=== PATIENT | male | born 1975 | race Caucasian/White ===

== ENCOUNTER 2019-09-25 17:26 | Emergency (ER) | payer BC ==
--- NOTE | 2019-09-25 17:39 | EDM.PDOC ---
ED HPI GENERAL MEDICAL PROBLEM - General Chief Complaint: Laceration Stated Complaint: LEFT RING FINGER INJURY Time Seen by Provider: 09/25/19 17:38 Source of Information: Reports: Patient History Limitations: Reports: No Limitations - History of Present Illness INITIAL COMMENTS - FREE TEXT/NARRATIVE: 44-year-old male presents to the ED after a crush type injury to his left fourth finger. Patient is a self-employed [employer]. He reports he had another pushing on the auger and his finger got crushed between the auger and a forklift. He has numbness to the tip volarly of the fourth left finger. Movement He did have a glove on the time of injury. He cannot remember his last tetanus toxoid. Patient has it wrapped up with electrical tape over top of a bandage on the wound to stop the bleeding . Patient did appreciate two active bleeding wounds on his volar finger when he examined it, prior to bandaging it. Patient was not wearing a wedding ring. Onset: Today Onset Date: 09/25/19 Onset Time: 16:30 Duration: Minutes: Location: Reports: Upper Extremity, Left (Due to the proximal left fourth finger.) Quality: Reports: Ache, Other (Mildly numb on the volar tip of the left fourth finger.) Severity: Mild Improves with: Reports: Rest Worsens with: Reports: Movement Context: Reports: Trauma (Type injury between 2 steel objects.). Denies: Activity, Exercise, Lifting, Sick Contact Associated Symptoms: Reports: No Other Symptoms Treatments BREAKFAST COOK: Reports: Other (see below) Left Finger-Ring Pain Score (Numeric/FACES): 2 - Related Data Allergies Allergy/AdvReac Type Severity Reaction Status Date / Time No Known Allergies Allergy Verified 09/25/19 17:37 Home Meds: Home Meds Doxycycline [Vibra-Tabs] 100 mg PO Q12HR #20 tab 09/25/19 [Rx] Social & Family History - Living Situation & Occupation Living situation: Reports: Occupation: Employed (Self-employed) ED ROS GENERAL - Review of Systems Review Of Systems: See Below Constitutional: Reports: No Symptoms HEENT: Reports: No Symptoms Respiratory: Reports: No Symptoms Cardiovascular: Reports: No Symptoms Endocrine: Reports: No Symptoms GI/Abdominal: Reports: No Symptoms : Reports: No Symptoms Musculoskeletal: Reports: No Symptoms Skin: Reports: No Symptoms Neurological: Reports: No Symptoms Psychiatric: Reports: No Symptoms Hematologic/Lymphatic: Reports: No Symptoms Immunologic: Reports: No Symptoms ED EXAM, SKIN/RASH Exam: See Below Exam Limited By: No Limitations General Appearance: Alert, WD/WN, No Apparent Distress Extremities: Other (Valuation of his hand on the left side reveals marked diffuse swelling with ecchymoses lateral to the ulnar and radial PIP joint. There is major swelling in the volar aspect of the finger and he is able to flex to 90 degrees. This is limited by swelling in the proximal phalanx.) Skin: Other (Wounds x2 aspect of left proximal finger. Both wounds will require laceration repair. Ulnar wound is 0.4 years and will require 1 suture. The wound on the radial aspect is stellate and will likely require 3 sutures. Overall length is still 1.2 cm.) Lymphatic: No Adenopathy ED SKIN PROCEDURES - Laceration/Wound Repair Lateral Proximal Ventral Digit - 4th (Ring) Appearance: Subcutaneous (Wounds. Ulnar aspect proximal volar left fourth finger 0.6 mm. Second wound is stellate and 1.8 centimeters in total length. 3 sutures placed in the ulnar wound and 6 sutures in the radial wound), Clean Distal NVT: Neuro & Vascular Intact Anesthetic Type: Local Local Anesthesia - Lidocaine (Xylocaine): 1% Plain Local Anesthetic Volume: 3cc Skin Prep: Saline Saline Irrigation (cc's): 9 Exploration/Debridement/Repair: Wound Explored, Minimal Debridement Closed with: Sutures Lac/Wound length In cm: 2.4 Suture Size: 4-0 Course - Vital Signs Last Recorded V/S: Last Vital Signs Temp 37.1 C 09/25/19 17:35 Pulse 86 09/25/19 17:35 Resp 18 09/25/19 17:35 BP 149/97 H 09/25/19 17:35 Pulse Ox 95 09/25/19 17:35 - Orders/Labs/Meds Orders: Active Orders 24 hr Category Date Time Status Vaccines to be Administered [RC] PER UNIT ROUTINE Care 09/25/19 17:48 Active Fingers Fourth Digit Lt F3 [CR] Stat Exams 09/25/19 17:47 Taken Meds: Medications Discontinued Medications Generic Name Dose Route Start Last Admin Trade Name Freq PRN Reason Stop Dose Admin Diphtheria/Tetanus/Acell Pertussis 0.5 ml 09/25/19 17:48 09/25/19 18:49 Adacel IM 09/25/19 17:49 0.5 ml .ONCE ONE Administration Lidocaine HCl 10 ml 09/25/19 18:00 09/25/19 18:50 Xylocaine 1% INJECT 09/25/19 18:01 10 ml ONETIME ONE Administration - Radiology Interpretation Free Text/Narrative:: 44-year-old male presents to the ED with a crush type injury to the volar aspect of his left proximal finger. 2 lacerations to the volar aspect of the finger one is only one is radial. Radial wound is approximately 1.2 cm in length in total. It is a stellate laceration. Laceration on the ulnar aspect of the volar finger is 4 mm in length and will require only 1 suture. Concern for possible fracture evident on exam as there is marked ecchymoses along the PIP joint line on both sides of the finger and at the MCP joint. He has fairly near normal range of motion limited by swelling over the volar proximal phalanx. PlaN: an x-ray will be done. Tdap will be updated since he cannot remember his last one. - Re-Assessments/Exams Free Text/Narrative Re-Assessment/Exam: 09/25/19 18:16 extremity of the left fourth finger reveals a subtle fracture of the proximal phalanx volar aspect. It is a occult fracture with mild displacement 1 to 2 mm at the MCP joint. 09/25/19 18:59 wounds on the volar surface of the proximal phalanx left fourth finger sutured under local anesthetic. Ulnar wound 0.6 cm in size sutured x3. Stellate 1.8 cm laceration radial volar proximal phalanx sutured times 6 sutures. Sutures will need to be removed in 10 days time. Due to the fracture of the proximal phalanx he will wear an aluminum splint starting tomorrow after finger cot dressing is removed. He is to wear this for the next 3-1/2 weeks. To start gradual range of motion exercises and protect as needed with a splint. Advised able take a full 6 weeks for the fracture to heal up completely. Offered analgesia but he declined. Will place him on antibiotics doxycycline 100 mg twice daily for the next 10 days to prevent secondary wound infection. Departure - Departure Time of Disposition: 19:01 Disposition: Home, Self-Care 01 Condition: Fair Clinical Impression: Fracture of proximal phalanx of finger of left hand Laceration of finger Qualifiers: Encounter type: initial encounter Finger: ring finger Damage to nail status: without damage Foreign body presence: without foreign body Laterality: left Qualified Code(s): S61.215A - Laceration without foreign body of left ring finger without damage to nail, initial encounter - Discharge Information *PRESCRIPTION DRUG MONITORING PROGRAM REVIEWED*: Not Applicable *COPY OF PRESCRIPTION DRUG MONITORING REPORT IN PATIENT YOSSI: Not Applicable Prescriptions: Doxycycline [Vibra-Tabs] 100 mg PO Q12HR #20 tab Instructions: Finger Fracture, Adult, [id number], Cast or Splint Care, Adult, [id number], Wound Care, Adult, Laceration Care, Adult, [id number] Referrals: Wilberto Butterfield MD [Primary Care Provider] - Forms: ED Department Discharge Additional Instructions: Evaluation in the emergency room today in regards to a crush type injury to the volar proximal aspect of your left ring finger. This resulted from being crushed between 2 pieces of steel under force. Nation reveals to lacerations to the proximal volar aspect of the finger. Ulnar wound is approximately 0.6 mm in length and was sutured x3. Radial wound 1.8 cm in length and sutured x6 under local anesthetic. A of the finger reveals a vertical fracture through the base of the proximal phalanx with minimal displacement. Treatment at home is Motrin as needed for pain relief. Suggest antibiotic doxycycline 100 mg twice daily for the next 10 days to prevent secondary wound infection and prevention of bone infection. Initial immobilization with finger cot dressing in the ED. This may be removed tomorrow night. Then daily cleanse the wound with soap and water. Showering is okay. Then apply topical antibiotic such as bacitracin or Polysporin to the wound once daily and cover with a bandage to keep clean. Suggest wearing a glove as needed to protect the area. You will need to wear a aluminum splint for the next 3-1/2 weeks to allow the fracture to partially heal. After this start to regain normal range of motion. It will take a full 6 weeks for the fracture to heal solidly. Into medical care if any signs of infection develop such as increased redness, swelling, obvious pus. Sepsis Event Note (ED) - Evaluation Sepsis Screening Result: No Definite Risk - Focused Exam Vital Signs: Vital Signs Temp Pulse Resp BP Pulse Ox 06/29/20 17:35 37.1 C 86 18 149/97 H 95 - My Orders Last 24 Hours: My Active Orders 09/25/19 17:47 Fingers Fourth Digit Lt F3 [CR] Stat 09/25/19 17:48 Vaccines to be Administered [RC] PER UNIT ROUTINE - Assessment/Plan Last 24 Hours: My Active Orders 09/25/19 17:47 Fingers Fourth Digit Lt F3 [CR] Stat 09/25/19 17:48 Vaccines to be Administered [RC] PER UNIT ROUTINE
[2019-09-25] MEDS ORDERED: Diphtheria,Pertussis(Acell),Tetanus Vaccine 0.5 ML Syringe IM ONE (17:48)
[2019-09-25] MEDS ORDERED: Lidocaine 1% 10 ML MDV INJECT ONE (18:00)
--- NOTE | 2019-09-25 19:51 | CR ---
Left 4th finger: 3 views centered to the left 4th finger were obtained. Joint spaces are preserved. No fracture, dislocation or other bony abnormality is appreciated. Impression: 1. No abnormality is appreciated on left 4th finger study. Diagnostic code #1 This report was dictated in MDT
== END 2019-09-25 19:15 | disposition home or self-care (01) ==
LOC: JD.ED 17:26
DX: S62.615A Displaced fracture of proximal phalanx of left ring finger, initial encounter for closed fracture (principal); S61.215A Laceration without foreign body of left ring finger without damage to nail, initial encounter; Z23 Encounter for immunization; W23.0XXA Caught, crushed, jammed, or pinched between moving objects, initial encounter
CPT/HCPCS: 12001; 73140; 90471; 90715; 99283; J2001